=== PATIENT | male | born 1985 | race Two or more races ===

== ENCOUNTER 2019-05-14 18:14 | Emergency (ER) | payer MEDICAID ==
[~2019-05-14] VITALS: Ht 177.8 cm; Wt 77.6 kg
[2019-05-14] MEDS ORDERED: AMLO10TA7 PO (18:28)
[2019-05-14] MEDS ORDERED: FEBU40TA PO (18:28)
[2019-05-14] MEDS ORDERED: IBUPROFEN 600 MG TABLET PO ONE (19:00)
[2019-05-14] MEDS ORDERED: IBUPROFEN 600 MG TABLET ONE (19:18)
--- NOTE | 2019-05-14 19:18 | NUR ---
xray at bedside
--- NOTE | 2019-05-14 20:06 | NUR ---
Provided finger splint and rain taped right 5th digit per Dr[address] Joshi orders. Patient tolerated well
--- NOTE | 2019-05-14 20:13 | NUR ---
Patient discharged to home in stable conditon. Written and verbal after care instructions given. Patient verbalizes understanding of instructions. Patient ambulating with steady gait
[2019-05-14 20:14] VITALS: BP 135/92
== END 2019-05-14 20:13 | disposition home or self-care (01) ==
LOC: EDBD 18:14 → ER 18:14
DX: M79.644 Pain in right finger(s) (principal); Z88.2 Allergy status to sulfonamides; Z79.899 Other long term (current) drug therapy; X58.XXXA Exposure to other specified factors, initial encounter; Y93.89 Activity, other specified; Y92.89 Other specified places as the place of occurrence of the external cause; Y99.8 Other external cause status
CPT/HCPCS: 73140; A4663

== ENCOUNTER 2019-06-15 19:48 | Emergency (ER) | payer MEDICAID ==
[~2019-06-15] VITALS: Ht 177.8 cm; Wt 63.5 kg
--- NOTE | 2019-06-15 21:45 | NUR ---
Patient discharged to home in stable conditon. Written and verbal after care instructions given. Patient verbalizes understanding of instructions. Patient ambulating with steady gait.
[2019-06-15 21:51] VITALS: BP 133/97
== END 2019-06-15 21:45 | disposition home or self-care (01) ==
LOC: ER 19:51
DX: S62.636A Displaced fracture of distal phalanx of right little finger, initial encounter for closed fracture (principal); X58.XXXA Exposure to other specified factors, initial encounter; Y93.89 Activity, other specified; Y92.89 Other specified places as the place of occurrence of the external cause; Y99.8 Other external cause status
CPT/HCPCS: 73120; 73610; A4663; J7030